=== PATIENT | male | born 1945 | race Caucasian/White ===

== ENCOUNTER 2016-12-20 04:38 | Emergency (ER) | payer OTHER ==
[2016-12-20 04:48] VITALS: TEMP 97.9
--- NOTE | 2016-12-20 04:53 | EDPHY ---
H & P Stated Complaint: c/o sob when lies down, resp unlabored and even. 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 They just drove across country having moved here from [place]. He states when he lays down to go to sleep he feels like he can't catch his breath. During the drive here he states he had to have the air conditioning on quite high in the hotel at night which helped his breathing. Sitting more upright in bed also helped. He does not get short of breath during the day unless he bends over to tie his shoes, etc. States he had a repeat chest x-ray prior to leaving [place] and was told that the pneumonia had mostly cleared up after he had finished the course of Levaquin. He has not had a residual cough. He denies a fever. He has had no chest pain or palpitations. He states he walks over 20 minutes a day without difficulty. Although they have had a poor diet with their traveling he denies any symptoms of reflux. REVIEW OF SYSTEMS: Constitutional: No fever, no chills. Eyes: No discharge. ENT: No sore throat. Respiratory: No cough. Cardiac: No chest pain, no palpitations. Gastrointestinal: No abdominal pain, no vomiting. He does feel like his " spleen is swollen." Genitourinary: No hematuria. Musculoskeletal: No back pain. Skin: No rashes. Neurological: No dizziness, no headache. 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 He discontinued hydroxyurea approximately 6 months ago Hx Asthma: No Hx Chronic Respiratory Disease: No Hx Diabetes: No Hx Cardiac Disease: No Hx Renal Disease: No Hx Cirrhosis: No Hx Alcoholism: No Hx HIV/AIDS: No Hx Splenectomy or Spleen Trauma: No - Family History Significant Family History: Diabetes, Other (Mother took Coumadin) - Social History Smoking Status: Former smoker Alcohol Use: None Drug Use: None Additional Social History: . Just moved here this week. Daughter lives in area. Profession: [employer] - Physical Exam Exam: General: Alert and oriented x3, slightly anxious, in no apparent respiratory distress HEENT: Normocephalic, atraumatic, pupils equally round and reactive to light and accommodation extra ocular muscles intact, oropharynx clear with moist mucosa Neck: Supple, nontender, no JVD Heart: Regular rate and rhythm without murmurs, gallops, or rubs Pulmonary: Clear to auscultation bilaterally, no rales, rhonchi, or wheezing Abdomen: Soft, nontender, nondistended, normal bowel sounds. Mild prominence of spleen Extremities: The right lower leg has multiple varicose veins, no cords or erythema Neuro: Cranial nerves II-XII grossly intact, moves all extremities well, nonfocal exam Constitutional: Initial Vital Signs Temperature (C) 97.9 F 12/20/16 04:43 Heart Rate 82 12/20/16 04:43 Respiratory Rate 18 12/20/16 04:43 Blood Pressure 129/85 H 12/20/16 04:43 O2 Sat (%) 96 12/20/16 04:43 O2 Delivery Mode Room Air Allergies/Adverse Reactions: No Known Allergies Allergy (Unverified 12/20/16 06:31) Home Medications: Medication Instructions Recorded NK [No Known Home Meds] 12/20/16 Medical Decision Making - Diagnostics EKG Interpretation: Normal sinus rhythm, heart rate 70, no acute ischemic changes, no ectopy Imaging Results: Chest x-ray negative by my read CTPA per verbal by radiologist: No PE; No residual Pneumonia; No PTx; No CHF; Mild peribronchial thickening Imaging: I viewed and interpreted images myself (PA/LAT CXR) ED Course/Re-evaluation: The patient was seen and examined. VS Reviewed. Pulse ox fluctuated between 90- 96%. Ambulatory pulse ox never dropped below 90%. EKG wnl and normal troponin. Labs significant for WBC 103K (up from high 80s per patient) Hg/Hct 9.6/ 29.6 which is not significantly changed from prior per patient. Platelets better than he recollects at 359K. D-Dimer elevated. CXR wnl, CTPA with mild peribronchial cuffing (visualized portion of spleen was enlarged). Discussed with Dr. Edwards, who was covering for Dr. Do, Heme/Onc [facility]. Discussed all of patients symptoms, lab data and imaging. She was very satisfied with work-up. No treatment of the patient's myeloproliferative disorder at this time. Patient to keep appointment 12/24/16. The patient does not qualify for home O2. He was advised to not eat late at night, sleep at a minimum of 15 angle. Follow up as directed or return to the ED sooner if symptoms worsen as discussed. Differential Diagnosis: Shortness of breath including but not limited to pulmonary infectious process, COPD, asthma, pulmonary embolus and congestive heart failure. - Data Points Laboratory Results: Laboratory Results 12/20/16 05:00 12/20/16 05:00 Medications Given: Discontinued Medications Sodium Chloride (Ns) 1,000 mls @ 0 mls/hr IV ONCE ONE PRN Reason: Wide Open Stop: 12/20/16 05:35 Last Admin: 12/20/16 05:39 Dose: 1,000 mls Departure - Departure Disposition: Home, Routine, Self-Care Clinical Impression: Dyspnea, unspecified, History of myeloproliferative disorder Condition: Good Instructions: Dyspnea (ED) Additional Instructions: Follow up with Dr. Do on 12/24/2016 as directed. Follow up on the final CT report. The prelim verbal showed no PE, no CHF, no residual pneumonia. Mild peribronchial thickening. Visualized portion of spleen enlarged. Do not eat within 3 hours of bedtime. Consider sleeping at a 15 degree incline. Return to the ED if symptoms change or worsen as discussed. Referrals: Patient,NotPresent [Primary Care Provider] - As per Instructions
--- NOTE | 2016-12-20 05:05 | CPEKG ---
Heart Rate: 70 RR Interval: 857 P-R Interval: 148 QRSD Interval: 102 QT Interval: 424 QTC Interval: 458 P Perr[place]: 59 QRS Perris: 73 T Wave P[place]: 49 EKG Severity - NORMAL ECG - EKG Impression: No acute ischemic changes; no ectopy EKG Impression: SINUS RHYTHM Electronically Signed By: Krista Casarez 20-Dec-2016 05:46:24
[2016-12-20 05:14] LABS: ADD DIFF? YES; ADD MORPH? NO; ATYPICAL LYMPHOCYTE FLAG 80 (0-99); FRAGMENT RBC FLAG 40 (0-99); HEMATOCRIT 29.6 % (40.0-51.0); HEMOGLOBIN 9.6 g/dL (13.7-17.5); LIPEMIA HEMOLYSIS FLAG 80 (0-99); MEAN CELL HEMOGLOBIN 30.9 pg (27.9-34.1); MEAN CELL HEMOGLOBIN CONCENTR. 32.4 g/dL (32.4-36.7); MEAN CELL VOLUME 95.2 fL (81.5-99.8); MEAN PLATELET VOLUME 12.5 fL (8.7-11.7); NRBC-AUTO% 0.4 % (0.0-0.2); PLATELET CLUMPS FLAG 20 (0-99); PLATELET COUNT 359 10^3/uL (150-400); RED BLOOD CELL COUNT 3.11 10^6/uL (4.40-6.38)
[2016-12-20 05:19] LABS: LEFT SHIFT FLG 300 (0-99)
[2016-12-20 05:21] LABS: ADD SCAN? NO
[2016-12-20 05:28] LABS: ALANINE AMINOTRANSFERASE 15 IU/L (21-72); ALBUMIN 3.7 g/dL (3.5-5.0); ALKALINE PHOSPHATASE 229 IU/L (38-126); ANION GAP 13 mEq/L (8-16); ASPARTATE AMINOTRANSFERASE 35 IU/L (17-59); BILIRUBIN,TOTAL 0.5 mg/dL (0.1-1.4); BILIRUBIN-CONJUGATED 0.4 mg/dL (0.0-0.5); BILIRUBIN-UNCONJUGATED 0.1 mg/dL (0.0-1.1); CALCIUM 8.9 mg/dL (8.5-10.4); CARBON DIOXIDE 22 mEq/l (22-31); CHLORIDE 104 mEq/L (97-110); CREATININE 1.4 mg/dL (0.7-1.3); GLOMERULAR FILTRATION RATE 50; GLUCOSE 93 mg/dL (70-100); POTASSIUM 4.7 mEq/L (3.5-5.2); SODIUM 139 mEq/L (134-144); TOTAL PROTEIN 8.4 g/dL (6.3-8.2)
[2016-12-20] MEDS ORDERED: NS 1,000 ML IV ONE (05:34)
[2016-12-20 05:47] LABS: TROPONIN I < 0.012 ng/mL (0-0.034)
[2016-12-20] MEDS ORDERED: IOPAMIDOL (ISOVUE 370) 100 ML BTL IV ONE (05:48)
[2016-12-20 05:57] LABS: LARGE PLATELETS PRESENT; PLATELET ESTIMATE ADEQUATE (ADEQ)
[2016-12-20 05:59] LABS: GIANT PLATELETS PRESENT; ROULEAUX PRESENT
[2016-12-20 06:00] LABS: POLYCHROMASIA 1+
[2016-12-20 06:16] VITALS: O2SAT 92
[2016-12-20 07:49] VITALS: BP 128/88; PULSE 72; RESP 20
== END 2016-12-20 07:46 | disposition home or self-care (01) ==
LOC: CED 04:38
DX: R06.00 Dyspnea, unspecified (principal); Z85.79 Personal history of other malignant neoplasms of lymphoid, hematopoietic and related tissues; Z87.891 Personal history of nicotine dependence
CPT/HCPCS: 71020; 71275; 93005; 96360; 99285; Q9967; 80048-PO; 80076-PO; 83880-PO; 84484-PO; 85025-PO; 85378-PO

== ENCOUNTER 2017-01-25 21:46 | Emergency (ER) | payer OTHER ==
[2017-01-25 22:16] VITALS: BP 135/77; PULSE 74; RESP 16; TEMP 97.9; O2SAT 96
--- NOTE | 2017-01-25 22:43 | EDPHY ---
H & P Stated Complaint: R LEG DISCOLORATION Time Seen by Provider: 01/25/17 22:37 HPI/ROS: HPI CHIEF COMPLAINT: Discoloration of bilateral lower extremity HISTORY OF PRESENT ILLNESS: This patient is 71-year-old male significant past medical history for myelofibrosis, he presents emergency room with yellow lesions on his skin of his lower extremities. He was unsure what they were. However after clinical exam these appear to be various bruises or areas of ecchymosis. He has a new 80 lb bulldog it has been running into his legs. He denies fever. He is eyes are not yellow. He has no jaundice. He has no petechiae or purpura. There is discrete lesions of yellow ecchymosis on his legs. Minimally painful. No significant swelling to the bilateral lower extremities. No pain. No calf tenderness. It is noted on his right lower extremity he does have some prominent dilated veins consistent with varices that he has had for over 50 years. Patient reports to me no easy bleeding. He has not had recent epistaxis or blood in his stool. Denies any blood in his urine. Past Medical History: Myelofibrosis, thrombophlebitis Past Surgical History: Denies recent surgery Social History: Denies daily use of drugs alcohol tobacco products, recently moved here. Family History: Noncontributory ROS REVIEW OF SYSTEMS: A comprehensive 10 point review of systems is otherwise negative aside from elements mentioned in the history of present illness. Exam Constitutional appears well nontoxic in no acute distress, triage nursing summary reviewed, vital signs reviewed, awake/alert. Eyes normal conjunctivae and sclera, EOMI, PERRLA. No jaundice, no icteric eyes HENT normal inspection, atraumatic, moist mucus membranes, no epistaxis, neck supple/ no meningismus, no raccoon eyes. Respiratory clear to auscultation bilaterally, normal breath sounds, no respiratory distress, no wheezing. Cardiovascular rate normal, regular rhythm, no murmur, no edema, distal pulses normal. Gastrointestinal soft, non-tender, no rebound, no guarding, normal bowel sounds, no distension, no pulsatile mass. Genitourinary no CVA tenderness. Musculoskeletal no midline vertebral tenderness, full range of motion, no calf swelling, no tenderness of extremities, no meningismus, good pulses, neurovascularly intact. Skin bilateral lower extremities there is discrete circumferential areas on both his lower extremities that appear to be yellow to brown areas of ecchymosis most likely sustained from his 80 lb bulldog, pink, warm, & dry, no rash, I do not appreciate petechia, purpura. Neurologic awake, alert and oriented x 3, AAOx3, moves all 4 extremities equally, motor intact, sensory intact, CN II-XII intact, normal cerebellar, normal vision, normal speech. Psychiatric normal mood/affect. Heme/Lymph/Immune no lymphadenopathy. Differential Diagnosis: Includes but is not limited to in a particular order ecchymosis to his lower extremities from a recent 80 lb puppy. Medical Decision Making: I do not feel this patient needs blood work I do not think he needs his platelets checks as he has no particular purpura. He does have myelofibrosis however his lesions on his legs are consistent with ecchymosis. He has not had easy bleeding. Will allow him to be discharged from the emergency room as he appears well nontoxic. He understands to return emergency room if he has any further symptoms questions or concerns includes leg pain, swelling, fever, easily bleeding. He is he is comfortable this plan. Source: Patient - Personal History Current Tetanus/Diphtheria Vaccine: Yes - Medical/Surgical History Hx Asthma: No Hx Chronic Respiratory Disease: No Hx Diabetes: No Hx Cardiac Disease: No Hx Renal Disease: No Hx Cirrhosis: No Hx Alcoholism: No Hx HIV/AIDS: No Hx Splenectomy or Spleen Trauma: No Other PMH: myeloproliferative disorder, thrombophebitis r leg. T&A - Social History Smoking Status: Former smoker Constitutional: Initial Vital Signs Temperature (C) 36.6 C 01/25/17 21:55 Heart Rate 74 01/25/17 21:55 Respiratory Rate 16 01/25/17 21:55 Blood Pressure 135/77 H 01/25/17 21:55 O2 Sat (%) 96 01/25/17 21:55 O2 Delivery Mode Room Air Allergies/Adverse Reactions: No Known Allergies Allergy (Verified 01/25/17 22:03) Home Medications: Medication Instructions Recorded ALPHA LIPOIC ACID 01/25/17 Allopurinol [Allopurinol 100 MG 100 mg PO DAILY 01/25/17 (*)] FOLIC ACID 01/25/17 Hydroxyurea [Hydrea 500 mg (*)] 500 mg PO DAILY 01/25/17 Jakafi 01/25/17 Lactobacillus Acidophilus 01/25/17 Multivitamin 01/25/17 Resveratrol 01/25/17 Vitamin B Complex 01/25/17 Departure - Departure Disposition: Home, Routine, Self-Care Clinical Impression: Ecchymosis Condition: Good Instructions: Ecchymosis (ED) Additional Instructions: 1. Return to the emergency room if you have worsening pain, swelling, fever or you feel your skin discoloration is getting worse. Referrals: MAGGIE SOLANO [Primary Care Provider] - As per Instructions
== END 2017-01-25 22:55 | disposition home or self-care (01) ==
LOC: CED 21:46
DX: R58 Hemorrhage, not elsewhere classified (principal); Z87.891 Personal history of nicotine dependence